=== PATIENT | female | born 1990 | race Caucasian/White ===

== ENCOUNTER 2020-05-29 21:29 | Emergency (ER) | payer BC ==
[~2020-05-29] VITALS: Ht 157.5 cm; Wt 48.0 kg
[2020-05-29 21:32] VITALS: BP 117/74
[2020-05-29] MEDS ORDERED: OXYMETAZOLINE HCL NASAL SPRAY 15ML BOTHNSTRLS STA (22:16)
[2020-05-29] MEDS ORDERED: TRANEXAMIC ACID 1,000 MG/10 ML TP ONE (23:45)
== END 2020-05-30 00:19 | disposition home or self-care (01) ==
LOC: ER 21:29
DX: S00.31XA Abrasion of nose, initial encounter (principal); R04.0 Epistaxis; W22.8XXA Striking against or struck by other objects, initial encounter; Y93.89 Activity, other specified; Y92.89 Other specified places as the place of occurrence of the external cause; Y99.8 Other external cause status
CPT/HCPCS: 99282